=== PATIENT | male | born 1995 | race Caucasian/White ===

== ENCOUNTER 2020-08-01 08:44 | Emergency (ER) | payer SELFPAY ==
[~2020-08-01] VITALS: Ht 165.1 cm; Wt 72.6 kg
--- NOTE | 2020-08-01 08:44 | NUR ---
Patient BIBA ALS, transferred to bed 4. Dr. Ceron and RN are evaluating the patient at bedside.
[2020-08-01 08:45] VITALS: BP 139/94
--- NOTE | 2020-08-01 09:03 | NUR ---
@ [id number] received care of 24 y/o male BIBA for heroin overdose, was out for 10 minutes before prevention coordinator called 911. Per EMS, Narcan x 2 IM was given, pt did not respond. Narcan x 2 IV ( 18 G right forearm) was administered, pt roused. No Med Hx, NKA. Pt admits to using Xanax, states it's prescribed for his anxiety. BS on scene 179. Pt hooked to registered nurse cardiac telemetry, with VS : BP 132/81 KS 81 SpO2 100%, RR 16. @ bedside for assessment.
[2020-08-01 12:04] VITALS: BP 113/65
--- NOTE | 2020-08-01 12:05 | NUR ---
CLEARED FOR D/C BY DR ARRIETA; D/C WITH PRESCRIPTION & INSTRUCTIONS ON DRUG OVERDOSE; PT FULLY UNDERSTANDS ALL MATERIALS GIVEN RE C/C HAS NO FURTHER QUESTIONS; AOX4; VSS; AMBULATORY WITH STEADY GAIT; NO SIGNS OF ACUTE DISTRESS
== END 2020-08-01 12:05 | disposition home or self-care (01) ==
LOC: MED 08:44
DX: T40.1X1A Poisoning by heroin, accidental (unintentional), initial encounter (principal); F11.10 Opioid abuse, uncomplicated; F17.290 Nicotine dependence, other tobacco product, uncomplicated; F15.90 Other stimulant use, unspecified, uncomplicated; R03.0 Elevated blood-pressure reading, without diagnosis of hypertension; F41.9 Anxiety disorder, unspecified; Z98.890 Other specified postprocedural states; Y92.89 Other specified places as the place of occurrence of the external cause
CPT/HCPCS: 93005; 99283